=== PATIENT | female | born 1960 | race Caucasian/White ===

== ENCOUNTER 2024-04-02 14:00 | Outpatient (RCR) | payer MEDICARE, OTHER | END 2024-04-05 | disposition home or self-care (01) | LOC: PT | DX: M80.00XD Age-related osteoporosis with current pathological fracture, unspecified site, subsequent encounter for fracture with routine healing (principal); Y93.B9 Activity, other involving muscle strengthening exercises ==

== ENCOUNTER 2024-04-06 08:00 | Outpatient (RCR) | payer MEDICARE, OTHER | END 2024-05-05 | LOC: PT | DX: M80.00XD Age-related osteoporosis with current pathological fracture, unspecified site, subsequent encounter for fracture with routine healing (principal); Y93.B9 Activity, other involving muscle strengthening exercises ==